=== PATIENT | female | born 1950 | race Caucasian/White ===

== ENCOUNTER → 2025-01-22 | Day surgery (SDC) | payer OTHER ==
[~2025-01-22] VITALS: Ht 175.3 cm; Wt 75.0 kg
[~2025-01-22] MED LIST: ATOR-2 PO; LIDOCAINE/PF 2% 5 ML VIAL ONE; PROPOFOL 1% ISO-OSM 1000 MG/100 ML BOTTLE ONE; SODIUM CHLORIDE 0.9% 1,000 ML ONE
[2025-01-22] MEDS: SODIUM CHLORIDE 0.9% 1,000 ML IV ONE (08:13)
== END | disposition home or self-care (01) ==
LOC: SDS 07:30
PROVIDERS: ATTEND Internal Medicine Gastroenterology
DX: K22.10 Ulcer of esophagus without bleeding (principal); K44.9 Diaphragmatic hernia without obstruction or gangrene; K31.A0 Gastric intestinal metaplasia, unspecified; I10 Essential (primary) hypertension; M06.9 Rheumatoid arthritis, unspecified; Z79.2 Long term (current) use of antibiotics; Z79.899 Other long term (current) drug therapy; Z98.818 Other dental procedure status; Z98.890 Other specified postprocedural states; Z88.8 Allergy status to other drugs, medicaments and biological substances
CPT/HCPCS: 43239; 88305; C1769; J3490; J2704; J7030